=== PATIENT | male | born 1995 | race Asian ===

== ENCOUNTER 2023-10-24 13:32 | Emergency (ER) | payer MEDICAID ==
[~2023-10-24] VITALS: Ht 175.3 cm; Wt 72.6 kg
[2023-10-24 13:37] VITALS: BP 117/51; RESP 20; TEMP 98; O2SAT 99
[2023-10-24] MEDS ORDERED: IBUP-2213 PO (14:27)
== END 2023-10-24 14:36 | disposition home or self-care (01) ==
LOC: MED 13:32
DX: S46.912A Strain of unspecified muscle, fascia and tendon at shoulder and upper arm level, left arm, initial encounter (principal); W01.0XXA Fall on same level from slipping, tripping and stumbling without subsequent striking against object, initial encounter; Y92.89 Other specified places as the place of occurrence of the external cause; Y93.89 Activity, other specified; Y99.8 Other external cause status
CPT/HCPCS: 73030; 99283